=== PATIENT | female | born 2005 | race Caucasian/White ===

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

== ENCOUNTER 2024-05-12 22:30 | Emergency (ER) | payer OTHER, MEDICAID ==
[2024-05-12 22:57] LABS: RAPID STREP SCREEN Negative (Negative)
--- NOTE | 2024-05-12 23:54 | ED Physician Documentation ---
PD KATHLEEN SORENSEN - Stated complaint Stated Complaint: COUGH/SORE THROAT - Chief complaint Chief Complaint: Resp - History obtained from History obtained from: Patient, Family - Additional information Additional information: The patient is brought to the emergency department by mom for chief complaint of cough for the past week. Mom states it seems to be getting little worse so she decided to bring the patient in. Patient's had a bit of a sore throat 2 but mom thinks this is from coughing. The patient was at camp when she began to develop symptoms. She otherwise has felt well. She does have a history of asthma and mom has tried giving her her inhalers and the seem to have kicked in by the time of this visit. The patient has not had any fevers. She has a history of Down syndrome. She is scheduled for cataract surgery in about 2 weeks. PD PAST MEDICAL HISTORY - Past Medical History Past Medical History: Yes Respiratory: Other GI: Other : Kidney stones - Past Surgical History Past Surgical History: Yes - Present Medications Home Medications: Ambulatory Orders Medication Instructions Recorded Confirmed Albuterol 2.5 mg INH Q4H PRN #30 neb 11/29/13 08/24/16 Fluticasone [Flonase] 1 sprays KATHERINE DAILY 11/29/13 08/24/16 Fluticasone 44 Mcg [Flovent] 1 puffs PO BID 08/24/16 08/24/16 Cetirizine [ZyrTEC] 10 mg PO DAILY 01/06/18 Fluticasone 44 Mcg [Flovent] 2 puffs PO DAILY 01/06/18 Levothyroxine [Synthroid] 44 mg PO DAILY 01/06/18 Benzonatate [Tessalon] 100 mg PO TID #30 cap 05/12/24 - Allergies Allergies/Adverse Reactions: Allergies Allergy/AdvReac Type Severity Reaction Status Date / Time Penicillins Allergy Unknown Verified 05/12/24 22:34 cats Allergy Mild Itching Uncoded 05/12/24 22:34 - Social History Does the pt smoke?: No Smoking Status: Never smoker Does the pt drink ETOH?: No Does the pt have substance abuse?: No - Immunizations Immunizations are current?: Yes - POLST Patient has POLST: No PD ED PE NORMAL - Vitals Vital signs reviewed: Yes - General General: No acute distress, Well developed/nourished, Other (Alert and appropriate, well-appearing.) - HEENT HEENT: Atraumatic, PERRL, EOMI, Moist mucous membranes, Pharynx benign - Neck Neck: Supple, no meningeal sign - Cardiac Cardiac: RRR, No murmur - Respiratory Respiratory: No respiratory distress, Clear bilaterally - Derm Derm: Normal color, Warm and dry, No rash - Extremities Extremities: No deformity - Neuro Neuro: Alert and oriented X 3 - Psych Psych: Normal mood, Normal affect Results - Vitals Vitals: Vital Signs - 24 hr 05/12/24 22:34 Temperature 36.8 C Heart Rate 72 Respiratory 16 Rate Blood Pressure 127/71 O2 Saturation 99 Oxygen O2 Source Room air - Labs Labs: Laboratory Tests 05/12/24 22:38 Group A Strep Rapid Negative PD Medical Decision Making - ED course Complexity details: reviewed results, re-evaluated patient, considered differential, d/w patient ED course: Patient was worked up with respiratory PCR panel and strep test. Strep was negative. PCR is pending at this time. I discussed with mom that the patient's symptoms are most likely viral in nature and will pass on their own. She has great oxygen saturation, normal lung exam, and overall looks fantastic. We have discussed symptomatic management at home as well as usual indications for return. Departure - Departure Disposition: 01 Home, Self Care Clinical Impression: Upper respiratory tract infection Qualifiers: URI type: unspecified viral URI Qualified Code(s): J06.9 - Acute upper respiratory infection, unspecified Condition: Stable Instructions: ED Viral Syndrome Prescriptions: Benzonatate [Tessalon] 100 mg PO TID #30 cap Comments: Radha's oxygen levels are great and her lungs are completely clear with good air movement throughout. Overall she looks fantastic, despite the cough. Her strep test is negative. A viral panel is pending at this time and you will be not ified for any significant positives. You may also follow Radha's results by going to our hospital website at [email or web address], clicking on the "my [email or web address]" tab and signing up for the patient portal. A prescription for cough medicine has been electronically transmitted to the [facility] pharmacy in [place]. Please pick this up tomorrow and administer as needed.
[2024-05-13 00:01] LABS: B. PARAPERTUSSIS- RESP PCR PAN NOT DETECTED; B. PERTUSSIS- RESP PCR PANEL NOT DETECTED; C. PNEUMONIAE- RESP PCR PANEL NOT DETECTED; CORONAVIRUS 229E-RESP PCR NOT DETECTED; CORONAVIRUS HKU1-RESP PCR NOT DETECTED; CORONAVIRUS NL63-RESP PCR NOT DETECTED; CORONAVIRUS OC43-RESP PCR NOT DETECTED; HUMAN METAPNEUMOVIRUS NOT DETECTED; INFLUENZA A- RESP PCR PANEL NOT DETECTED; INFLUENZA B - RESP PCR PANEL NOT DETECTED; M. PNEUMONIAE- RESP PCR PANEL NOT DETECTED; PARAINFLUENZA VIRUS 1 NOT DETECTED; PARAINFLUENZA VIRUS 2 NOT DETECTED; PARAINFLUENZA VIRUS 3 NOT DETECTED; PARAINFLUENZA VIRUS 4 NOT DETECTED; RHINOVIRUS/ENTEROVIRUS NOT DETECTED; RSV- RESP PCR PANEL NOT DETECTED; SARS-CoV-2 -RESP PCR PANEL NOT DETECTED
[2024-05-13 00:12] VITALS: BP 124/70; O2SAT 100
== END 2024-05-13 00:04 | disposition home or self-care (01) ==
LOC: ED 22:30
DX: J06.9 Acute upper respiratory infection, unspecified (principal)
CPT/HCPCS: 87070; 87430; 87633; 99283; 99284